=== PATIENT | female | born 1965 | race Caucasian/White ===

== ENCOUNTER → 2017-08-04 09:38 | Outpatient (CLI) | payer BC, SELFPAY ==
--- NOTE | 2017-08-04 09:47 | XR_ITS ---
XR foot LT min 3V HISTORY: ITS.REASON: LEFT FOOT PAIN ORDERING PHYSICIAN: Maite Orta PATIENT AGE: 52 years COMPARISON: None FINDINGS: No fracture or dislocation. No lytic or blastic change. There is normal mineralization.. The joint spaces are well-preserved. No significant degenerative/arthritic changes. No erosive changes evident. IMPRESSION: Negative, no acute finding
== END ==
PROVIDERS: PCP Nurse Practitioner Family; Visit Provider Nurse Practitioner Family
DX: M79.672 Pain in left foot (principal)
CPT/HCPCS: 73630

== ENCOUNTER → 2017-08-08 14:39 | Outpatient (CLI) | payer BC, SELFPAY ==
--- NOTE | 2017-08-08 14:43 | XR_ITS ---
XR cervical spine 5V COMPARISON: None HISTORY: Relies neck pain TECHNIQUE: AP lateral and oblique views and spot view of the odontoid FINDINGS: There is straightening of normal curvature suggesting muscle spasm. C1-C7 appear intact and disc spaces are well maintained throughout. There is minimal intermittent calcification of the anterior longitudinal ligament mid cervical spine. Oblique films show normal neural foramina bilaterally. The prevertebral soft tissues are normal and the odontoid is normal. IMPRESSION: Findings of muscle spasm, no other significant abnormality noted
== END ==
PROVIDERS: PCP Family Medicine; Visit Provider Nurse Practitioner Family
DX: M54.2 Cervicalgia (principal)
CPT/HCPCS: 72050

== ENCOUNTER → 2017-09-01 08:48 | Outpatient (CLI) | payer BC, SELFPAY ==
--- NOTE | 2017-09-01 08:55 | MR_ITS ---
MR angio head wo con CLINICAL INDICATION: Date of the persistent headache with decrease in vision, blurred vision and dizziness ITS.REASON: NEW SALAS ONSET HEADACHE ORDERING PHYSICIAN: Maite Orta PATIENT AGE: 52 years Comparison: None TECHNIQUE:, Planar images obtained without contrast with 3-D multi slab and MIP reformats. Single shot MRV FINDINGS: No aneurysm, arteriovenous malformation, or major intracranial occlusive process evident. No evidence of superior sagittal sinus thrombosis. IMPRESSION: Negative MRA of the brain. No aneurysm apparent
== END ==
PROVIDERS: PCP Family Medicine; Visit Provider Nurse Practitioner Family
DX: G44.52 New daily persistent headache (NDPH) (principal)
CPT/HCPCS: 70544

== ENCOUNTER → 2017-12-31 15:55 | Outpatient (CLI) | payer BC, SELFPAY ==
--- NOTE | 2017-12-31 15:59 | XR_ITS ---
XR foot LT min 3V HISTORY: Pain and swelling following injury ITS.REASON: LEFT ANKLE AND JOINT PAIN ORDERING PHYSICIAN: Lexus Oliveros PATIENT AGE: 52 years COMPARISON: None FINDINGS: No displaced fracture or dislocation. No lytic or blastic change. There is normal mineralization.. The joint spaces are well-preserved. No significant degenerative/arthritic changes. No erosive changes evident. There is some cortical irregularity at the tip of the lateral malleolus is seen on the AP view of the foot raising the suspicion of a nondisplaced fracture. IMPRESSION Possible nondisplaced fracture at the tip of the lateral malleolus
--- NOTE | 2017-12-31 15:59 | XR_ITS ---
XR ankle LT min 3V HISTORY: Pain and swelling laterally ITS.REASON: LEFT ANKLE AND JOINT PAIN ORDERING PHYSICIAN: Lexus Oliveros PATIENT AGE: 52 years Comparison: None FINDINGS: There is a faint calcific density at the tip of the medial malleolus seen on the oblique view and could be due to an old avulsion injury. There is mild soft tissues one overlying the lateral malleolus region. No fractures evident on the ankle views. However, on the AP foot view there is some cortical irregularity at the tip of the lateral malleolus raising the question of a nondisplaced fracture at the tip. No other significant anomalies are evident. IMPRESSION: Soft tissue swelling with possible nondisplaced avulsion fracture at the tip of the lateral malleolus
== END ==
PROVIDERS: PCP Nurse Practitioner; Visit Provider Nurse Practitioner
DX: M25.572 Pain in left ankle and joints of left foot (principal)
CPT/HCPCS: 73610; 73630

== ENCOUNTER 2018-01-06 13:51 | Outpatient (RCR) | payer BC, SELFPAY | END 2018-01-06 13:52 | disposition home or self-care (01) | LOC: PT 13:51 | PROVIDERS: PCP Nurse Practitioner; Visit Provider Orthopaedic Surgery | DX: S92.492A Other fracture of left great toe, initial encounter for closed fracture (principal) | CPT/HCPCS: 97760 ==

== ENCOUNTER → 2018-09-04 12:07 | Outpatient (CLI) | payer BC, SELFPAY ==
--- NOTE | 2018-09-04 12:11 | XR_ITS ---
XR cervical spine 5V Ordering Physician: Maite Orta APRN Patient Age: 53 years: Female HISTORY: ITS.REASON: CERVICALGIA,PARESTHESIA OF SKIN TECHNIQUE: Five-view cervical spine series. COMPARISON :08/08/2017 C-spine series 5 view FINDINGS Nonspecific straightening the cervical spine. The disc space heights are well-maintained throughout with only slight, borderline narrowing at C7/T1. Prevertebral soft tissues are normal: Today's oblique views are more optimal] nicely demonstrate facet hypertrophy encroach upon foramen bilaterally. This is most evident to the left with facet hypertrophy encroachment most evident upon the posterior aspect of left C4/5 foramen followed by left C3/4 foramen. On the right facet hypertrophy yields slight encroachment upon several foramen. Encroachment most evident posteriorly at the C5-C6 foramen and thus 3 C6/7, C4/5 due to the facet arthropathy. C1-C2 relationships appear normal. Facet relationships appear satisfactory. Apices the lungs are clear. ...... IMPRESSION...... Vertebral bodies intact. Disc spaces are fairly well maintained with only borderline narrowing of the C7/T1 disc. Bilateral facet hypertrophy., which does yield encroachment upon the neural foramen bilaterally. Foramina encroachment due to facet hypertrophy most evident to the left at C4/5 C3/4. Mild foraminal encroachment is seen to the right, most evident C5-C6 and to lesser degree C 6/7, C4/5.
== END ==
PROVIDERS: PCP Nurse Practitioner Family; Visit Provider Nurse Practitioner Family
DX: M54.2 Cervicalgia (principal); R20.2 Paresthesia of skin; R20.0 Anesthesia of skin
CPT/HCPCS: 72050

== ENCOUNTER → 2019-02-09 14:03 | Outpatient (CLI) | payer BC, SELFPAY ==
--- NOTE | 2019-02-09 14:13 | US_ITS ---
PROCEDURE: US TRANSVAGINAL CLINICAL INDICATION: PAIN ON INTERCOURSE COMPARISON: No exams were available for comparison FINDINGS: UTERUS: The uterus is 5.4 x 3 x 4.2 cm with a combined endometrial thickness of 3 mm. No uterine mass is evident. The uterus is slightly retroverted. LEFT OVARY: 1.7 x 1.1 cm. RIGHT OVARY: 2.9 x 1.3 cm. No adnexal mass or cul-de-sac fluid. IMPRESSION: Unremarkable pelvic ultrasound Dictated by: Juan Antonio Ware MD 02/09/2019 19:30 Electronically signed by Juan Antonio Ware MD in [place] 02/09/2019 19:30
== END ==
PROVIDERS: PCP Nurse Practitioner Family; Visit Provider Nurse Practitioner Family
DX: N94.10 Unspecified dyspareunia (principal)
CPT/HCPCS: 76830

== ENCOUNTER → 2019-02-16 09:15 | Outpatient (POV) | payer BC, SELFPAY | PROVIDERS: Visit Provider Dermatology | DX: Z00.00 Encounter for general adult medical examination without abnormal findings (principal) ==

== ENCOUNTER → 2019-03-08 07:56 | Outpatient (CLI) | payer BC, SELFPAY ==
--- NOTE | 2019-03-08 07:58 | MM_ITS ---
PROCEDURE: MM DIG SCREENING MAMM BI W/CAD CLINICAL INDICATION: SCREENING There is no personal or family history of breast cancer. There has been a previous biopsy left breast benign disease. COMPARISON: The patient had previous mammograms at [facility] in 2002 but they have been purged. TECHNIQUE: Standard CC and MLO images were obtained. R2 CAD reviewed. FINDINGS: Prominent somewhat heterogenic fibroglandular densities are seen in the central portions and subareolar regions of both breasts there somewhat lessening the sensitivity of mammography. There are scattered benign-appearing calcifications in each breast. There somewhat of a diffuse nodular appearance to the parenchymal pattern in both breasts likely due to fibrocystic change. There is asymmetric nodular density near the axillary tail left breast likely a low-lying node. In view the fact that there are no previous studies available for comparison recommend the patient return for ultrasound examination of both breasts. IMPRESSION: Diffusely dense parenchymal pattern with diffuse nodularity bilaterally BI-RAD Category: 0 Need Additional Imaging Evaluation FOLLOW-UP: IMM Immediate Follow-up Recommended (A letter has been sent to the patient regarding results of the study.) Dictated by: Dr. Dwaine Cornell MD 03/09/2019 09:[address] Dwaine Cornell MD in [place] 03/09/2019 09:58
== END ==
PROVIDERS: PCP Nurse Practitioner Family; Visit Provider Nurse Practitioner Family
DX: Z12.31 Encounter for screening mammogram for malignant neoplasm of breast (principal)
CPT/HCPCS: 77067

== ENCOUNTER → 2019-04-08 12:56 | Outpatient (CLI) | payer BC, SELFPAY ==
--- NOTE | 2019-04-08 13:01 | MM_ITS ---
PROCEDURE: MM DIG MAMM DX UNILAT LT CAD CLINICAL INDICATION: ABNORMAL MAMM Follow-up left breast nodule, abnormal mammogram COMPARISON: MM DIG SCREENING MAMM BI W/CAD from 03/08/2019 US BREAST LT COMPLETE from 04/08/2019 US BREAST RT COMPLETE from 04/08/2019 TECHNIQUE: Spot-compression views performed of the left breast along with mL and XCC view FINDINGS: There is dense fibroglandular tissue which obscures fine detail.. The area of asymmetric density in the deep aspect of the left breast is an adequately covered on the spot compression views. Suggest patient return for additional spot views of this area. Diffuse calcification noted in the upper aspect of the left breast and may be secretory/fibrocystic in nature Right breast ultrasound: Diffuse heterogeneous echogenicity noted consistent with fibrocystic changes. No discrete mass. Left breast ultrasound: 7 mm cyst at 2 o'clock with diffuse heterogeneous echogenicity noted consistent with fibrocystic changes. Small nodes are present in both axilla. IMPRESSION: Incomplete, the nodular density deep in the left breast is not adequately covered on the focal spot compression views. Suggest additional spot views at no additional charge.. BI-RAD Category: 0 Need Additional Imaging Evaluation FOLLOW-UP: IMM Immediate Follow-up Recommended (A letter has been sent to the patient regarding results of the study.) Dictated by: Juan Antonio Ware MD 04/17/2019 09:25 Electronically signed by Juan Antonio Ware MD in [place] 04/17/2019 09:25
== END ==
PROVIDERS: PCP Nurse Practitioner Family; Visit Provider Family Medicine
DX: R92.8 Other abnormal and inconclusive findings on diagnostic imaging of breast (principal)
CPT/HCPCS: 76641; 77065

== ENCOUNTER → 2019-05-19 13:25 | Outpatient (CLI) | payer BC, SELFPAY ==
--- NOTE | 2019-05-19 | US_ITS ---
PROCEDURE: US BREAST LT COMPLETE CLINICAL INDICATION: Abnormal mammogram COMPARISON: US BREAST RT COMPLETE from 04/08/2019 MM DIG MAMM DX UNILAT LT CAD from 04/08/2019 FINDINGS: Left breast ultrasound: Echodense fibroglandular tissues present. A 9 mm cyst is present at 12 o'clock, dilated ducts are present near the nipple. There is a 5 mm cyst at 2 o'clock. No suspicious nodules are evident. IMPRESSION: BI-RADS category 3 probably benign findings. Recommend six-month mammographic and sonographic follow-up Dictated by: Juan Antonio Ware MD 05/26/2019 15:19 Electronically signed by Juan Antonio Ware MD in [place] 05/26/2019 15:20
== END ==
PROVIDERS: PCP Family Medicine; Visit Provider Nurse Practitioner Family
DX: R92.8 Other abnormal and inconclusive findings on diagnostic imaging of breast (principal)
CPT/HCPCS: 76641

== ENCOUNTER → 2020-07-24 09:34 | Outpatient (CLI) | payer BC, SELFPAY ==
--- NOTE | 2020-07-24 09:36 | XR_ITS ---
PROCEDURE: XR DEXA AXIAL SKELETON CLINICAL HISTORY: SCREENING FOR OSTEOPOROSIS COMPARISON: No exams were available for comparison FINDINGS: The right hip BMD is 0.673 with a T-score of -1.6. The left hip BMD is 0.726 with a T-score of -1.8. The lumbar spine BMD is 0.947 with a T-score of -0.9. IMPRESSION: This patient is considered osteopenic according to the World Health Organization criteria. Bone density is between 10 and 25 percent below young normal. Fracture risk is moderate. Treatment is advised. Based on these results a follow-up exam is recommended in 2 year. Dictated by: Juan Antonio Ware MD 07/24/2020 23:09 Juan Antonio Ware MD in [place] 07/25/2020 10:03
--- NOTE | 2020-07-24 10:03 | XR_ITS ---
PROCEDURE: XR MULTIPLE SPINE 6+V CLINICAL INDICATION: LOW BACK PAIN,CERVICALGIA Neck pain COMPARISON: CR [id number] XR cervical spine 5V from 08/08/2017 FINDINGS: Cervical spine: Slight reversal cervical lordosis. Minimal anterolisthesis of C4 on C5 of 2 mm. Mild degenerative disc disease C5-C6. Small anterior osteophytes at C4-C5 and C6. Mild facet hypertrophic changes C3-C4 and C5. Mild foraminal narrowing on the right at C3-C4 C4-C5 and C5-C6 with mild left foraminal narrowing at C4-C5. No acute fracture or dislocation. No lytic or blastic change. The facet hypertrophy and foraminal narrowing has slightly progressed from the previous exam. Lumbar spine: Normal alignment. Degenerative disc disease L5-S1. Facet arthritic changes at L4 and L5. No acute fracture or dislocation. No lytic or blastic change. Degenerative changes lower thoracic spine. IMPRESSION: Cervical and lumbar spondylosis as detailed above. Dictated by: Juan Antonio Ware MD 07/24/2020 11:51 Juan Antonio Ware MD in [place] 07/24/2020 11:51
== END ==
PROVIDERS: PCP Family Medicine; Visit Provider Nurse Practitioner Family
DX: Z13.820 Encounter for screening for osteoporosis (principal); M54.2 Cervicalgia; M54.5 Low back pain
CPT/HCPCS: 72084; 77080

== ENCOUNTER 2020-12-22 15:18 | Emergency (ER) | payer BC, SELFPAY ==
[2020-12-22 17:45] VITALS: PULSE 86; RESP 12; TEMP 36.3; O2SAT 98; BMI 20.3
[2020-12-22 17:58] VITALS: BP 138/87; PULSE 86; RESP 12; TEMP 36.3
--- NOTE | 2020-12-22 19:11 | HMH.EDUTC ---
[facility] [place]ression: Exposure to COVID-19 virus Disposition: Home, Self-Care Condition on Discharge: Good Instructions: DI for COVID-19 (Suspected or Confirmed ), Preventing the Spread of Coronavirus Discharge Instructions Additional Instructions: Drink plenty of fluids. Take tylenol for pain or fever. Return if you begin to have difficulty breathing. Follow up with your regular doctor. GO TO THE ER FOR ANY WORSENING SYMPTOMS Quarantine until you know the results of your covid-19 test. If it is positive, the health department should call you and give you further instructions about your length of Quarantine and other things. Notify your school or workplace of your results and follow their instructions regarding return to work/school. Referrals: Messi Yepez MD [Primary Care Provider] - Time of Disposition: 19:11 Medical Decision Making - Medical Records Medical records reviewed: No: I reviewed the patient's medical records. - Tomy Inquiry Pt receiving controlled substance: No Vital Signs: 12/22/20 17:45 12/22/20 17:58 Temperature 97.4 F L 97.4 F L Temperature Source Temporal Artery Scan Temporal Artery Scan Pulse Rate 86 Pulse Rate [Left] 86 Respiratory Rate 12 12 Blood Pressure 138/87 02 Sat by Pulse Oximetry 98 [facility] [place] - General Stated complaint: covid test Time Seen by Provider: 12/22/20 18:00 Mode of Arrival: Ambulatory Source of Information: Patient Limitations: No Limitations Description of Symptoms (Recalled from Triage Doc. by RN): covid test. asymptomatic. HEENT Symptoms (Recalled from RN notes): No Resp Symptoms (Recalled from RN notes): No Skin Symptoms (Recalled from RN notes): No MS Symptoms (Recalled from RN notes): No Functional Status (Recalled from RN notes): na - History of Present Illness Provider Complaint: She has been exposed to covid-19. She denies any symptoms so far. - Related Data Home Medications Medication Instructions Recorded Confirmed multivitamin 1 tab PO DAILY 01/06/18 03/08/19 levothyroxine 25 mcg tablet PO #90 tab 03/08/19 03/08/19 psyllium seed (sugar) oral powder 1 tbsp PO DAILY 03/08/19 03/08/19 Allergies Allergy/AdvReac Type Severity Reaction Status Date / Time Penicillins Allergy Hives Verified 03/08/19 10:08 - Worker's Comp Is this a Worker's Comp case?: No [facility] History - Hepatitis A Screen Drug use history?: No High risk sexual behaviors?: No History of sexually transmitted infection?: No Currently employed?: No Childcare worker?: No Do you have indoor plumbing?: Yes Do you have electricity?: Yes Attestation statement:: This patient has been screened for Hepatitis A risk factors. I have reviewed the patient's past medical history: Yes Laterality Cases: Left: Breast Biopsy, Bilateral: Tonsillectomy, Other Other Surgeries: Yes: Tubal Ligation - Social History Smoking Status: Current every day smoker Tobacco Type: cigarettes Alcohol Intake: never Occupational Status: employed Family Hx:: Diabetes CLIN ASST history: Tubal Ligation ROS Obtained: Yes All systems reviewed & no additional complaints - Constitutional Constitutional: Reports system reviewed and no additional complaints, except as docu - Eyes Eyes: Reports system reviewed and no additional complaints, except as docu - ENT Ears, Nose, Mouth, and Throat: Reports system reviewed and no additional complaints, except as docu - Cardiovascular Cardiovascular: Reports system reviewed and no additional complaints, except as docu - Respiratory Respiratory: Reports system reviewed and no additional complaints, except as docu - Gastrointestinal Gastrointestingal: Reports: system reviewed and no additional complaints, except as docu Physical Exam - General General appearance: alert, in no apparent distress - Head Head exam: atraumatic, normocephalic, normal inspection - Eye Eye exam: Present: normal appearan
== END 2020-12-22 19:23 | disposition home or self-care (01) ==
PROVIDERS: Emergency Provider Nurse Practitioner Family; PCP Family Medicine
DX: Z20.822 Contact with and (suspected) exposure to COVID-19 (principal); F17.210 Nicotine dependence, cigarettes, uncomplicated
CPT/HCPCS: 99202; C9803; G0463; U0003; U0005

== ENCOUNTER 2021-05-19 16:45 | Emergency (ER) | payer BC, SELFPAY ==
[2021-05-19 17:10] VITALS: BP 120/65; PULSE 76; RESP 18; TEMP 37.3; O2SAT 98; BMI 23.0
--- NOTE | 2021-05-19 17:33 | HMH.EDUTC ---
[facility] [place]: Exposure to COVID-19 virus Acute bronchitis Qualifiers: Bronchitis organism: unspecified organism Qualified Code(s): J20.9 - Acute bronchitis, unspecified Disposition: Home, Self-Care Condition on Discharge: Good Instructions: DI for Acute Bronchitis Additional Instructions: Start antibiotic today. Be sure to complete entire prescription even if feeling better Tylenol and ibuprofen as needed for pain or fever Humidifier/vaporizer/hot steamy shower Follow-up with primary care tomorrow. Follow-up immediately in the ER of the [facility] for new or worsening symptoms or no noticeable improvement over the next 48-72 hours. Stop smoking Dejan Gold will not cause drowsiness to use at bedtime to help stop cough so that she can get some sleep Start steroids today. Helps with inflammation therefore coughing and wheezing. Follow directions on package. Prescriptions: Benzonatate [Benzonatate 100mg cap] 100 mg PO BID PRN 7 Days #14 cap PRN Reason: Cough Transmission Status: Pending to [id number] predniSONE [Prednisone 20mg Tab] 20 mg PO BID #10 tab Transmission Status: Pending to [id number] Azithromycin [Zithromax 250mg tab] 250 mg PO DIRECTED #6 tab Transmission Status: Pending to [id number] Referrals: Messi Yepez MD [Primary Care Provider] - Time of Disposition: 17:38 Medical Decision Making - Tomy Inquiry Pt receiving controlled substance: No Vital Signs: 05/19/21 17:10 Temperature 99.1 F Temperature Source Oral Pulse Rate [Right Brachial] 76 Respiratory Rate 18 Blood Pressure [Right Arm] 120/65 Blood Pressure Mean [Right Arm] 83 Blood Pressure Source [Right Arm] Automatic Cuff Blood Pressure Position [Right Arm] Sitting 02 Sat by Pulse Oximetry 98 Oxygen Delivery Method Room Air Orders (Tests/Meds): ORDERS Category Date Time Status Covid-19 Nasal PCR ([facility]) Routine Lab 05/19/21 17:31 [place] [facility] [place] - General Chief complaint: [facility] Stated complaint: cough Time Seen by Provider: 05/19/21 17:33 Mode of Arrival: Ambulatory Source of Information: Patient Limitations: No Limitations Description of Symptoms (Recalled from Triage Doc. by RN): PATIENT C/O CONGESTION, PRODUCTIVE COUGH WITH GREEN SPUTUM, HEADACHE AND WHEEZING HEENT Symptoms (Recalled from RN notes): Yes Resp Symptoms (Recalled from RN notes): Yes Skin Symptoms (Recalled from RN notes): No MS Symptoms (Recalled from RN notes): No Functional Status (Recalled from RN notes): WNL - History of Present Illness Provider Complaint: 56 yr old female presnets for congestion, coughing up green sputum, headache and wheezing for 2 days - Related Data Home Medications Medication Instructions Recorded Confirmed multivitamin 1 tab PO DAILY 01/06/18 03/08/19 levothyroxine 25 mcg tablet PO #90 tab 03/08/19 03/08/19 psyllium seed (sugar) oral powder 1 tbsp PO DAILY 03/08/19 03/08/19 Previous Rx's Medication Instructions Recorded Azithromycin [Zithromax 250mg 250 mg PO DIRECTED #6 tab 05/19/21 tab] Benzonatate [Benzonatate 100mg 100 mg PO BID PRN 7 Days #14 cap 05/19/21 cap] predniSONE [Prednisone 20mg 20 mg PO BID #10 tab 05/19/21 Tab] Allergies Allergy/AdvReac Type Severity Reaction Status Date / Time Penicillins Allergy Hives Verified 03/08/19 10:08 - Worker's Comp Is this a Worker's Comp case?: No [facility] History - Hepatitis A Screen Drug use history?: No High risk sexual behaviors?: No History of sexually transmitted infection?: No Currently employed?: No Childcare worker?: No Do you have indoor plumbing?: Yes Do you have electricity?: Yes Attestation statement:: This patient has been screened for Hepatitis A risk factors. I have reviewed the patient's past medical history: Yes Laterality Cases: Left: Breast Biopsy, Bilateral: Tonsillectomy, Other Other Surgeries: Yes: Tubal
[2021-05-19 17:37] VITALS: BP 120/65; PULSE 76; RESP 18; TEMP 37.3; O2SAT 98
== END 2021-05-19 17:42 | disposition home or self-care (01) ==
PROVIDERS: Emergency Provider Nurse Practitioner Family; PCP Family Medicine
DX: J20.9 Acute bronchitis, unspecified (principal); Z20.822 Contact with and (suspected) exposure to COVID-19; F17.210 Nicotine dependence, cigarettes, uncomplicated; Z88.0 Allergy status to penicillin
CPT/HCPCS: 99202; C9803; G0463; U0003; U0005

== ENCOUNTER → 2021-11-01 10:59 | Outpatient (CLI) | payer BC, SELFPAY ==
--- NOTE | 2021-11-01 11:04 | XR_ITS ---
FINAL REPORT CLINICAL HISTORY: ACUTE COUGH COMPARISON: 03/12/2018 FINDINGS: Two views of the chest were obtained. The heart size and pulmonary vascularity are within normal limits. The mediastinum is normal. The lungs are hyperinflated consistent with COPD. There is no pneumothorax. The bony thorax is intact. IMPRESSION: No acute cardiopulmonary process. Reviewed, Interpreted and Dictated by Alfonso Sheridan III, MD Transcribed by Bibi Stiles Authenticated and . [facility]
== END ==
PROVIDERS: PCP Nurse Practitioner Family; Visit Provider Nurse Practitioner Family
DX: R05.1 Acute cough (principal)
CPT/HCPCS: 71046

== ENCOUNTER 2023-09-04 22:05 | Emergency (ER) | payer BC, SELFPAY ==
[2023-09-04 22:16] VITALS: BP 137/87; PULSE 73; RESP 16; TEMP 36.5; O2SAT 97; BMI 24.6
--- NOTE | 2023-09-04 22:19 | ED_ITS ---
<Statement entered by Rica Means MD - 09/04/23 22:53> I was consulted by the BARBRA, and we discussed the complexity of the problems being addressed. I approved the treatment and management plan for this patient's care in the emergency department, thus performing a substantive portion of the medical decision making. Rica Means MD, KIMMIE, FACEP Discharge Plan Disposition Patient Disposition: Home, Self-Care Condition: Good Prescriptions Prescriptions: New doxycycline hyclate 100 mg tablet 100 mg PO BID 10 Days Qty: 20 0RF No Action levothyroxine 25 mcg tablet PO Qty: 90 calcium carbonate [Tums] 200 mg calcium (500 mg) tablet,chewable 200 mg PO DAILY ibuprofen [Advil] 200 mg tablet 200 mg PO Q6H PRN acetaminophen 500 mg capsule 500 mg PO QID PRN albuterol sulfate 90 mcg/actuation HFA aerosol inhaler 2 inh inhalation QID PRN (Reason: shortness of breath or wheezing) 90 Days Qty: 8.5 2RF multivitamin tablet,chewable 1 tab PO DAILY Referrals Follow up/Referrals: Taylor Keita MD [Primary Care Provider] - See instructions Clinical Impressions Clinical Impression: Tick bite Qualifiers: Encounter type: initial encounter Site of tick bite: toe Toe: lesser toe Lat erality: left Qualified Code(s): S90.465A - Insect bite (nonvenomous), left lesser toe(s), initial encounter Instructions Patient Instructions: Animal Bites Discharge ED Provider: Rica Means General Adult HPI General Chief complaint: Animal Bite Stated complaint: tick bite left foot swelling Time Seen by Provider: 09/04/23 22:19 History of Present Illness HPI narrative: Patient presents for evaluation of a tick bite. Patient noticed a very small tick located in the interdigital space between the second and third toe attached to the second toe of the left foot. Patient reports that I can barely bend my toe due to the swelling however he denies chest pain shortness of breath fever chills hemoptysis hematochezia melena nausea vomit diarrhea. Related Data Home Medications Medication Instructions Recorded Confirmed multivitamin 1 tab PO DAILY 01/06/18 01/07/22 levothyroxine 25 mcg tablet PO #90 tabs 03/08/19 01/07/22 acetaminophen 500 mg capsule 500 mg PO QID PRN 01/07/22 01/07/22 calcium carbonate (Tums) 200 mg PO DAILY 01/07/22 01/07/22 ibuprofen 200 mg tablet (Advil) 200 mg PO Q6H PRN 01/07/22 01/07/22 Previous Rx's Medication Instructions Recorded albuterol sulfate 90 mcg/actuation 2 inh inhalation QID PRN shortness 01/07/22 aerosol inhaler of breath or wheezing 90 days #8.5 grams doxycycline hyclate 100 mg tablet 100 mg PO BID 10 days #20 tabs 09/04/23 Allergies Allergy/AdvReac Type Severity Reaction Status Date / Time Penicillins Allergy Hives Verified 01/07/22 10:59 [facility] Disclaimer: The information contained in this section may have been updated after the patient was seen, as this information can be updated by other users. Medical History (Updated 09/04/23 @ 22:21 by ROXANN Cantrell) Allergic rhinitis, unspecified Tobacco abuse disorder Nicotine dependence, cigarettes, uncomplicated Cough Persistent dyspnea after COVID-19 Tobacco abuse counseling Smoking greater than 30 pack years Pulmonary emphysema Dyspnea on exertion Pneumonia COVID Surgical History (Updated 01/07/22 @ 11:16 by Akua Austin) History of nasal polypectomy History of tonsillectomy History of breast surgery Family History Other No significant family history Social History Smoking Status: Unknown if ever smoked alcohol intake: never current occupational status: employed Travel in the last 8 weeks: None ROS Obtained: Yes Systems reviewed as appropriate & no additional complaints except as documented Physical Exam General General appearance: alert and in no apparent distress Respiratory Respiratory exam: Present normal lung sounds bilaterally Cardiovascular Cardiovascular exam: Present regular rate and normal rhythm Neurological Exam Neurological exam: Present alert, oriented X3 and CN II-XII intact Skin Skin exam: Present warm, dry and normal color Other Other exam information: Patient has a reported tick bite and the second toe of the left foot. There is some general erythema but I cannot visualize a bite site. I do not have any focal fluctuance induration noted. Medical Decision Making Medical Records Medical records reviewed: Yes I reviewed the patient's medical records. Tomy Inquiry Pt receiving controlled substance: No Vital Signs: 09/04/23 22:16 Temperature 97.7 F Temperature Source Oral Pulse Rate [Right Brachial] 73 Respiratory Rate 16 Blood Pressure [Right Arm] 137/87 Blood Pressure Mean [Right Arm] 103 Blood Pressure Source [Right Arm] Automatic Cuff Blood Pressure Position [Right Arm] Sitting 02 Sat by Pulse Oximetry 97 Oxygen Delivery Method Room Air Lab Data Lab results reviewed: Yes I reviewed the patient's lab results. Orders (Tests/Meds): ED MEDICATIONS Generic Name Dose Route Start Last Admin Trade Name Freq PRN Reason Stop Dose Admin Doxycycline Hyclate 100 mg 09/04/23 22:19 Doxycycline Hycl 100 Mg Tablet PO 09/04/23 22:20 ONCE ONE Medical Decision Narrative: In summary patient is a 58-year-old female who presents to the emergency department for evaluation of tick bite. Patient is hemodynamically upon arrival, afebrile. Physical exam is remarkable for erythema of the second toe of the left foot without evidence of induration or fluctuance. Differential diagnosis includes tick bite cellulitis versus retained parts versus abscess. I had interactive discussion with the patient regarding initial workup management and diagnosis and the patient directed decision making patient elected for oral antibiotics and follow-up with her PCP. Patient given return precautions for any worsening swelling pain altered sensation to return to the ER. Patient verbalized understanding. Critical Care Critical Care Time Critical Care Time: No
[2023-09-04 22:27] VITALS: BP 137/87; PULSE 71; RESP 16; TEMP 36.6; O2SAT 97
[2023-09-04] MEDS: DOXYCYCLINE HYCL 100 MG TABLET PO (22:36)
== END 2023-09-04 22:39 | disposition home or self-care (01) ==
PROVIDERS: Emergency Provider Student in an Organized Health Care Education/Training Program; PCP Family Medicine
DX: S90.465A Insect bite (nonvenomous), left lesser toe(s), initial encounter (principal); W57.XXXA Bitten or stung by nonvenomous insect and other nonvenomous arthropods, initial encounter
CPT/HCPCS: 99283

== ENCOUNTER 2024-03-21 15:50 | Emergency (ER) | payer BC, SELFPAY ==
[2024-03-21 16:35] VITALS: BP 136/74; PULSE 74; RESP 19; TEMP 36.9; O2SAT 96; BMI 23.6
--- NOTE | 2024-03-21 17:03 | EXP.UTC ---
Discharge Plan Disposition Patient Disposition: Home, Self-Care Condition: Good Prescriptions Prescriptions: New azithromycin 250 mg tablet 250 mg PO DIRECTED Qty: 6 0RF Rx Instructions: Take two (2) tablets on day #1, then one (1) tablet day #2 thru #5 prednisone 20 mg tablet 20 mg PO BID Qty: 10 0RF Rx Instructions: Start tomorrow No Action levothyroxine 25 mcg tablet PO Qty: 90 calcium carbonate [Tums] 200 mg calcium (500 mg) tablet,chewable 200 mg PO DAILY ibuprofen [Advil] 200 mg tablet 200 mg PO Q6H PRN acetaminophen 500 mg capsule 500 mg PO QID PRN albuterol sulfate 90 mcg/actuation HFA aerosol inhaler 2 inh inhalation QID PRN (Reason: shortness of breath or wheezing) 90 Days Qty: 8.5 2RF multivitamin tablet,chewable 1 tab PO DAILY doxycycline hyclate 100 mg tablet 100 mg PO BID 10 Days Qty: 20 0RF Referrals Follow up/Referrals: Taylor Keita MD [Primary Care Provider] - See instructions Clinical Impressions Clinical Impression: Influenza B Acute bronchitis Qualifiers: Bronchitis organism: other organism Qualified Code(s): J20.8 - Acute bronchitis due to other specified organisms Acute maxillary sinusitis Qualifiers: Recurrence: non-recurrent Qualified Code(s): J01.00 - Acute maxillary sinusitis, unspecified Instructions Patient Instructions: DI for Sinusitis, DI for Acute Bronchitis, DI for Influenza -- Adult Print Language Print Language: Greenlandic Discharge [facility] [facility] [place] General Stated complaint: soa, cough, chest congestion Mode of Arrival: Ambulatory Source of Information: Patient Limitations: No Limitations Time Seen by Provider: 03/21/24 17:02 Description of Symptoms (Recalled from Triage Doc. by RN): PATIENT C/O COUGH WITH MUCOUS AND SOA X 2 DAYS HEENT Symptoms (Recalled from RN notes): No Resp Symptoms (Recalled from RN notes): Yes Skin Symptoms (Recalled from RN notes): No MS Symptoms (Recalled from RN notes): No Functional Status (Recalled from RN notes): WNL History of Present Illness Provider Complaint: 59-year-old female presents for coughing up thick green mucus and shortness of air for 2 days. Patient states on Friday she was seen by her PCP and diagnosed with influenza B was given some cough syrup but over the last couple of days symptoms have worsened. Patient states she feels like she has got pneumonia like she did the last time she had flu. Related Data Home Medications ?Medication ?Instructions ?Recorded ?Confirmed multivitamin 1 tab PO DAILY 01/06/18 01/07/22 levothyroxine 25 mcg tablet PO #90 tabs 03/08/19 01/07/22 acetaminophen 500 mg capsule 500 mg PO QID PRN 01/07/22 01/07/22 calcium carbonate (Tums) 200 mg PO DAILY 01/07/22 01/07/22 ibuprofen 200 mg tablet (Advil) 200 mg PO Q6H PRN 01/07/22 01/07/22 Previous Rx's ?Medication ?Instructions ?Recorded albuterol sulfate 90 mcg/actuation 2 inh inhalation QID PRN shortness 01/07/22 aerosol inhaler of breath or wheezing 90 days #8.5 grams doxycycline hyclate 100 mg tablet 100 mg PO BID 10 days #20 tabs 09/04/23 azithromycin 250 mg tablet 250 mg PO DIRECTED #6 tabs 03/21/24 prednisone 20 mg tablet 20 mg PO BID #10 tabs 03/21/24 Allergies Allergy/AdvReac Type Severity Reaction Status Date / Time Penicillins Allergy Hives Verified 01/07/22 10:59 Worker's Comp Is this a Worker's Comp case?: No [facility] Disclaimer: The information contained in this section may have been updated after the patient was seen, as this information can be updated by other users. Medical History , CASE LINER) Allergic rhinitis, unspecified Tobacco abuse disorder Nicotine dependence, cigarettes, uncomplicated Cough Persistent dyspnea after COVID-19 Tobacco abuse counseling Smoking greater than 30 pack years Pulmonary emphysema Dyspnea on exertion Pneumonia COVID Surgical History , CASE LINER) History of nasal polypectomy History of tonsillectomy History of breast surgery Family History , CASE LINER) No significant family history Social History , CASE LINER) Smoking Status: Unknown if ever smoked alcohol intake: never current occupational status: employed Travel in the last 8 weeks: None ROS Obtained: Yes Systems reviewed as appropriate & no additional complaints except as documented Physical Exam General General appearance: alert and in no apparent distress ENT ENT exam: Present normal oropharynx, mucous membranes moist and TM's normal bilaterally Expanded ENT Exam Nose exam: Present sinus tenderness Respiratory Respiratory exam: Present wheezes Cardiovascular Cardiovascular exam: Present regular rate and normal rhythm Neurological Exam Neurological exam: Present alert and oriented X3 Skin Skin exam: Present warm and intact Medical Decision Making Medical Records Medical records reviewed: Yes I reviewed the patient's medical records. Screening: Per USPSTF and CDC recommendations, given the prevalence of disease in our region, it is our hospital?s policy to screen for HIV and viral Hepatitis for all patients aged 18 and over and those with ongoing risk factors. Tomy Inquiry Pt receiving controlled substance: No Vital Signs: 03/21/24 16:35 Temperature 98.4 F Temperature Source Oral Pulse Rate [Left Brachial] 74 Respiratory Rate 19 Blood Pressure [Left Arm] 136/74 Blood Pressure Mean [Left Arm] 94 Blood Pressure Source [Left Arm] Automatic Cuff Blood Pressure Position [Left Arm] Sitting 02 Sat by Pulse Oximetry 96 Oxygen Delivery Method Room Air
[2024-03-21] MEDS: DEXAMETHASONE 4MG/ML 1ML VIAL 4 MG IM (17:19)
[2024-03-21] MEDS: ALBUTEROL 0.083% 2.5 MG/3 ML NEB IH (17:19)
--- NOTE | 2024-03-21 17:19 | XR_ITS ---
PROCEDURE INFORMATION: Exam: XR Chest Exam date and time: 03/21/2024 5:22 PM Age: 59 years old Clinical indication: Cough; Additional info: Cough, SOA TECHNIQUE: Imaging protocol: Radiologic exam of the chest. Views: 2 views. COMPARISON: CR XR CHEST 2V 11/01/2021 11:08 AM FINDINGS: Lungs: No evidence of acute pulmonary disease or infiltrates Pleural spaces: There is blunting of the left costophrenic angle which is a stable finding. Heart/Mediastinum: Stable cardiac and mediastinal contours. Bones/joints: No evidence of acute osseous abnormalities within the visualized portions of the thoracic spine and ribs. Osseous structures appear appropriate for patient age. IMPRESSION: No dense parenchymal consolidation, pleural effusion, or pneumothorax.
[2024-03-21 17:40] VITALS: BP 136/74; PULSE 74; RESP 19; TEMP 36.9; O2SAT 96
== END 2024-03-21 17:43 | disposition home or self-care (01) ==
PROVIDERS: Emergency Provider Nurse Practitioner Family; PCP Family Medicine
DX: J20.8 Acute bronchitis due to other specified organisms (principal)
CPT/HCPCS: 71046; 94640; 96372; 99213; G0381; J1100; J7613